=== PATIENT | female | born 1965 | race Caucasian/White ===

== ENCOUNTER 2016-11-26 12:03 | Emergency (ER) | payer OTHER ==
[2016-11-26 12:02] LABS: URINE SOURCE CLEAN CATCH
[~2016-11-26 12:03] MED LIST: CLARITIN10 M2 PO; MECLIZINE HCL25 M1; MEDI-MECLIZINE25 M1 PO; MOBIC15 MG PO; TYLENOL #3 PO; VITAMIN D50000 UNIT PO; ZANAFLEX4 M1 PO
[2016-11-26 12:04] LABS: URINE APPEARANCE SL CLOUDY; URINE BILIRUBIN NEG (NEG); URINE COLOR YELLOW; URINE GLUCOSE NEG (NORM); URINE KETONE NEG (NEG); URINE LEUKOCYTE ESTERASE NEG (NEG); URINE NITRATE NEG (NEG); URINE PH 8.5 (5-8); URINE PROTEIN NEG (NEG); URINE UROBILINOGEN 0.2 MG/DL (NORM)
[2016-11-26 12:09] LABS: MICRO INDICATED? NO; URINE BLOOD NEG (NEG)
[2016-11-26 12:32] LABS: BASOPHIL# 0.1 X10e3 (0-0.3); BASOPHIL% 1.3 % (0-2.5); EOSINOPHIL% 0.5 % (0.0-7.0); HEMATOCRIT 38.7 % (35.0-45.0); HEMOGLOBIN 12.7 gm/dL (12.0-16.0); LYMPHOCYTE# 1.4 X10e3 (1.0-3.5); LYMPHOCYTE% 14.9 % (17.0-45.0); MEAN CELL VOLUME 90.2 FL (83-96); MEAN CORPUSCULAR HEMOGLOBIN 29.8 PG (28-34); MEAN PLATELET VOLUME 9.4 FL (6.5-11.5); MONOCYTE# 0.4 X10e3 (0-1.0); MONOCYTE% 4.3 % (3.0-12.0); NEUTROPHIL# 7.4 X10e3 (1.5-7.1); PLATELET COUNT 352 X10e3 (140-420); RED BLOOD COUNT 4.28 X10e (3.90-5.30); RED CELL DISTRIBUTION WIDTH 13.8 % (11.0-15.5); WHITE BLOOD COUNT 9.4 X10e3 (4.0-10.5)
[2016-11-26 12:34] LABS: DIFF IND NO
[2016-11-26 12:57] LABS: ALBUMIN SERUM 4.4 g/dL (3.5-5.0); ALKALINE PHOSPHATASE 98 U/L (32-92); ALT (SGPT) 30 U/L (10-40); AST (SGOT) 25 U/L (10-42); BILIRUBIN,TOTAL 0.3 mg/dL (0.2-2.0); BLOOD UREA NITROGEN 11 mg/dL (9-23); BUN/CREATININE RATIO 18.33; CALCIUM SERUM 9.3 mg/dL (8.4-10.2); CARBON DIOXIDE 24 mmol/L (22-31); CHLORIDE 105 mmol/L (100-111); CREATININE SERUM 0.6 mg/dL (0.6-1.4); GLOM FILT RATE Estimated ABOVE60 mL/min (>60); GLUCOSE FASTING 126 mg/dL (70-110); LIPASE 35 U/L (22-51); POTASSIUM 3.5 mmol/L (3.5-5.1); PROTEIN TOTAL SERUM 7.4 g/dL (6.0-8.3); SODIUM 138 mmol/L (135-145)
== END 2016-11-26 14:02 | disposition home or self-care (01) ==
LOC: SED 12:03
PROVIDERS: Emergency Medicine
DX: K29.00 Acute gastritis without bleeding (principal); K80.50 Calculus of bile duct without cholangitis or cholecystitis without obstruction; F17.200 Nicotine dependence, unspecified, uncomplicated; Z98.890 Other specified postprocedural states; Z79.899 Other long term (current) drug therapy
CPT/HCPCS: 36415; 80053; 81003; 83690; 85025; 96361; 96374; 96375; 99284; J1885; J2405

== ENCOUNTER 2016-12-06 22:15 | Inpatient (IN) | payer OTHER ==
--- NOTE | ~2016-12-06 | OR ---
Unit #: [id number] #: [id number] Patient: ADALBERTO ESTRADA [id number] [address] [place], [place] [address] [id number] Erin MR#: [id number] NAME: ADALBERTO ESTRADA ROOM: [facility] Date of Procedure: 12/09/2016 Admission Date: 12/06/2016 Surgeon: Jeff Acharya M.D. : 1965 Attending Physician: Henrry Gregory M.D. Primary Care Physician: Dorian Bryant M.D. OPERATIVE REPORT PREOPERATIVE DIAGNOSIS Cholecystitis. POSTOPERATIVE DIAGNOSIS Cholecystitis. PROCEDURE PERFORMED Laparoscopic cholecystectomy. COMPENSATION AND BENEFITS ANALYST None. ANESTHESIA General endotracheal anesthesia. ESTIMATED BLOOD LOSS Minimal. IV FLUIDS 800 crystalloid. COMPLICATIONS None. INDICATIONS FOR PROCEDURE The patient is a 51-year-old with elevated bilirubin and findings consistent with acute cholecystitis. DESCRIPTION OF PROCEDURE The patient was taken to the operating theater and placed in supine position. General anesthesia was induced. The abdomen was prepped and draped. A 5-mm Optiview trocar was placed in the right upper quadrant without difficulty. The abdomen was insufflated to 15 mmHg with CO2. Under direct vision, I placed a subxiphoid 10 mm, right lateral 5 mm, and an umbilical 5 mm. General inspection of the abdomen as mentioned with acute cholecystitis. I grasped the gallbladder and retracted it up over the liver. I dissected the neck of the gallbladder and identified the cystic duct. Its junction with the gallbladder was confirmed. It was thus skeletonized, doubly hemoclipped, and divided. The cystic artery laid immediately posterior. This was skeletonized, doubly hemoclipped, and divided. The gallbladder was removed from the gallbladder bed with Bovie electrocautery and delivered via the subxiphoid port. Hemostasis Unit #: [id number] #: [id number] Patient: ADALBERTO ESTRADA was adequate. I removed the ports under direct vision with no evidence of abdominal hemorrhage. The fascia was closed with 0 Vicryl and skin with 4-0 Vicryl. The patient tolerated the procedure well and sent to recovery room in good condition. Dictated by... Opal Oneill/kam TD: 12/09/2016 11:06 JOB #: [id number] OPERATIVE REPORT X Jeff Acharya MD PROCEDURE OPERATIVE NOTE
--- NOTE | ~2016-12-06 | DS ---
Unit #: [id number] #: [id number] Patient: ADALBERTO ESTRADA [id number] [address] [place], [place] [address] [id number] I MR#: [id number] NAME: ADALBERTO ESTRADA ROOM: [facility] Age: 51 Sex: F Admission Date: 12/06/2016 : 1965 Discharge Date: 12/10/2016 Attending Physician: Henrry Gregory M.D. Primary Care Physician: Dorian Bryant M.D. DISCHARGE SUMMARY HISTORY AND HOSPITAL COURSE Ms. Estrada is a 51-year-old female, who presented to the emergency room with abdominal pain and was found to have gallstone and pancreatitis. She was admitted to the hospital and underwent a preoperative ERCP and stent placement to clear her common bile duct. The following day, she underwent laparoscopic cholecystectomy and today is doing very well. She is afebrile with stable vital signs. She is tolerating a regular diet and passing flatus. Her abdomen is benign to examination. Her liver chemistries are normalizing. Today, the patient will be discharged home in stable condition with instructions to undergo diet and activity as tolerated. She may shower and use a laxative as needed. She is to follow up with Dr. Acharya in 1 to 2 weeks for evaluation of her abdomen and wounds. She was told to schedule with Dr. Valdez to have her stent removed in 4 to 6 weeks. Prescription for Tylenol No.3 was left and the med reconciliation sheet was completed. The patient understood these instructions and to be discharged home in stable condition. Dictated by... Opal Husain/kam TD: 12/12/2016 01:20 JOB #: [id number] DISCHARGE SUMMARY X Henrry Gregory MD X DISCHARGE SUMMARY
--- NOTE | ~2016-12-06 | CO ---
Unit #: [id number] #: [id number] Patient: ADALBERTO ESTRADA [id number] [address] [address] [id number] I MR#: [id number] NAME: ADALBERTO ESTRADA ROOM: [facility] Age: 51 Sex: F Admission Date: 12/06/2016 : 1965 Attending Physician: Henrry Gregory M.D. Primary Care Physician: Dorian Bryant M.D. Consultation Date: 12/07/2016 CONSULTATION REPORT HISTORY OF PRESENT ILLNESS Ms. Estrada is a 51-year-old female who was in her usual state of health until the last 24 hours, when she developed epigastric pain followed by nausea and vomiting. She went to the [facility] emergency room because of the persistent vomiting. CT scan and labs were consistent with gallstone pancreatitis. The patient denies any alcohol or recreational drug use. She has never had any symptomatic cholelithiasis in the past. PAST MEDICAL HISTORY 1. Chronic obstructive pulmonary disease and is a three to four yaup-rre-dgq smoker. 2. Chronic back pain from a traumatic accident as a child. 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 3. She has Meniere disease. SOCIAL HISTORY She does not work. She is on disability. She has a boyfriend. She has had one child that has . She denies the use of alcohol or recreational drugs. She is a heavy smoker. FAMILY HISTORY She says there is a lot of medical illness in her family, but she is unclear as to specifics. ALLERGIES No known drug allergies. CURRENT MEDICATIONS Doses are documented on the medication reconciliation sheet, but they include 1. Pepcid. 2. Nicotine transdermal. 3. Spiriva. 4. Albuterol. 5. Tylenol 3. 6. Mobic. 7. Vitamin D. 8. Zanaflex. 9. Claritin. 10. Meclizine. REVIEW OF SYSTEMS No hematemesis, hematochezia or melena. No diarrhea or dysuria. Unit #: [id number] #: [id number] Patient: ADALBERTO ESTRADA PHYSICAL EXAMINATION GENERAL: She is awake, alert and oriented. She appears comfortable. VITALS: Temperature 99.2, pulse 78, respiratory rate 17, blood pressure 130/76. HEENT: Unremarkable. LUNGS: Clear. HEART: Regular rhythm. ABDOMEN: Slightly distended, but is soft. She guards throughout, particularly in the epigastrium. She has a well-healed upper midline scar. EXTREMITIES: No edema. NEUROLOGIC: Grossly intact. SKIN: No skin rashes or lesions. DIAGNOSTIC STUDIES IMAGING: CT scan of the abdomen and pelvis showed diffuse pancreatic edema and enlargement consistent with pancreatitis. She had cholelithiasis with gallbladder wall thickening and diffuse enlargement of the extrahepatic and intrahepatic biliary ductal system. Ultrasound of the gallbladder confirmed cholelithiasis and the ductal abnormalities. LABORATORY: CMP today shows normal electrolytes, BUN and creatinine. Her initial total bilirubin was 3.3 and on followup it is 1.5. Amylase and lipase today are 652 and 1537. Her lipase in the emergency room last night was 10,520. Alcohol was less than 5. INR 1.5, white blood cell count 15,000 with 82% neutrophils, hemoglobin 13.3, platelets 318,000. Tox screen was negative. Urinalysis was negative for infection. ASSESSMENT/PLAN 1. 51-year-old female with gallstone pancreatitis. The patient will be admitted, hydrated and started on antibiotics because of the possibility of acute cholecystitis associated with the pancreatitis. We will keep her GI tract at rest and allow the pancreatitis to resolve. In the interim we will ask gastroenterology to see the patient for preoperative ERCP to clear her common bile duct. After that we discussed that she will need laparoscopic cholecystectomy to remove her gallbladder and prevent recurrence. The patient understands and agrees to proceed. 2. Tobacco abuse and chronic obstructive pulmonary disease. We will continue her home medications and give her a nicotine patch. However, should she have any pulmonary issues, pulmonary medicine will be consulted. Dictated by... Opal Husain TD: 12/07/2016 06:40 JOB #: [id number] Unit #: [id number] #: [id number] Patient: ADALBERTO ESTRADA CONSULTATION REPORT X Henrry Gregory MD X CONSULTATION REPORT
--- NOTE | ~2016-12-06 | CR84 ---
[facility] A Service of [facility] & [facility] / [facility] RADIOLOGY TEXT RESULTS PATIENT: ADALBERTO ESTRADA LOCATION: [facility] 473-01 : [birth year] UNIT #: [id number] AGE: [address]: Henrry Gregory MD SEX: F ORDER DR: [id number] [facility] [address] [place], [place] [address] [id number] I MR#: [id number] Acc #: [id number] NAME: ADALBERTO ESTRADA : 1965 SEX: F STUDY DATE/TIME: 12/08/2016 8:45 UNIT: [facility] ROOM: [facility] STUDY DESCRIPTION: CR ERCP Biliary and Pancr SI Attending Physician: Henrry Gregory M.D. Ordering Physician: Sabino Valdez M.D. Primary Care Physician: Dorian Bryant M.D. MEDICAL IMAGING REPORT This report is preliminary unless electronic signature is present EXAM ERCP interpretation only INDICATIONS 51-year-old female with common bile duct stones. FINDINGS The fluoro time was 2.1 minutes. 5 images were submitted. The study demonstrates injection of the common bile duct with balloon sweeping and placement of a stent in the common bile duct. Please refer to ERCP report for complete details. Dictated by... Bert Dowling M.D. THIS IS AN ELECTRONICALLY VERIFIED REPORT Bert Dowling M.D. at 12/09/2016 7:41 AM ARS/[place]ha TD: 12/08/2016 16:13 JOB #: [id number] MEDICAL IMAGING REPORT COPY
--- NOTE | ~2016-12-06 | CO ---
Unit #: [id number] #: [id number] Patient: ADALBERTO ESTRADA [id number] [address] [place], [place] [address] [id number] I MR#: [id number] NAME: ADALBERTO ESTRADA ROOM: 473 Age: 51 Sex: F Admission Date: 12/06/2016 : 1965 Attending Physician: Henrry Gregory M.D. Primary Care Physician: Dorian Bryant M.D. Consultation Date: 12/07/2016 CONSULTATION REPORT REASON FOR CONSULTATION Biliary pancreatitis. HISTORY OF PRESENT ILLNESS Ms. Estrada is a 51-year-old white female, who is a heavy smoker smokes about three packs of cigarettes a day. The patient has presented with history of acute biliary pancreatitis. She had severe upper abdominal pain along with nausea and vomiting. The pain was continuous felt diffusely in the upper abdomen. The patient has been having smaller pains in the upper abdomen for the past few weeks that would resolve spontaneously. She also has longstanding history of retrosternal ascending heartburn, postprandial dyspepsia, and gastroesophageal reflux. PAST MEDICAL HISTORY Significant for history of Meniere disease, chronic obstructive lung disease, and chronic back pain. PAST SURGICAL HISTORY Includes splenectomy and appendectomy, traumatic accident following the trauma. MEDICATIONS At home included Pepcid, Spiriva, albuterol, Tylenol No. 3, Mobic, vitamin D, Zanaflex, Claritin, meclizine. ALLERGIES She has no known drug allergies. FAMILY HISTORY No family history of colon, pancreatic cancer, or liver disease. SOCIAL HISTORY The patient is disabled, lives with boyfriend. Does not drink alcohol, but smokes three pack of cigarette a day. REVIEW OF SYSTEMS Detailed review of organ systems does not reveal any recent weight loss. No history of fever, chills, or rigors. No history of headache, seizures, or syncope. No history of cough, expectoration, or hemoptysis. No history of dysuria, hematuria, or pyuria. No history of focal seizures or extremity weakness. Main symptoms seems to be lower sternal and upper abdominal pain. PHYSICAL EXAMINATION Unit #: [id number] #: [id number] Patient: ADALBERTO ESTRADA GENERAL: She is alert and oriented, comfortable, and lying in supine in bed. VITAL SIGNS: Stable with a temperature of 98, pulse 78 per minute and regular, respiratory rate is 17, blood pressure is 111/71. She weighs 116 pounds. HEENT: She has no pallor, icterus, lymphadenopathy, or peripheral edema. CARDIOVASCULAR: Normal heart sounds. No murmurs on auscultation. LUNGS: Reveals normal breath sounds. Good air entry. ABDOMEN: Soft, there being no area of localized rigidity, rebound, guarding, or tenderness. Liver and spleen are not palpable. Bowel sounds normal. DIAGNOSTIC STUDIES LABORATORY RESULTS: Shows an INR of 1.5. A CBC with a white count of 17,000 with left shift. Serum chemistry shows normal BUN and creatinine and electrolytes. AST, ALT, and alkaline phosphatase is 186, 334, and 299 respectively. Peak amylase and lipase are 652 and 10,000, which shows a declining trend. IMAGING STUDIES: I do not have access to the patient's CAT scan, but it is reported as being consistent with gallstone pancreatitis by Dr. Gregory. I will try to see if there is any biliary ductal dilation on the CT. CLINICAL IMPRESSION 1. The patient with acute biliary pancreatitis. The management and plan will include clearance of the common bile duct followed by laparoscopic cholecystectomy. An endoscopic retrograde cholangiopancreatography is being scheduled for tomorrow. The pros and cons of procedure, potential risks, and complications were discussed with the patient including possibility of perforation, bleeding, and complication related to sedation, as well as pancreatitis. 2. Mild coagulopathy. This might be due to some circulating anticoagulant. We will give the patient 1 unit of FFP as she is likely to need sphincterotomy if she would have common bile duct stones. 3. Heavy tobacco abuse. 4. Chronic back pain. 5. Chronic obstructive pulmonary disease. Thank you very much for asking me to see this pleasant patient. I appreciate the consult. Dictated by... Opal Dc TD: 12/07/2016 10:07 JOB #: [id number] Unit #: [id number] #: [id number] Patient: ADALBERTO ESTRADA CONSULTATION REPORT X Sabino Valdez MD X CONSULTATION REPORT
--- NOTE | ~2016-12-06 | OR ---
Unit #: [id number] #: [id number] Patient: ADALBERTO ESTRADA [id number] [address] [place], [place] [address] [id number] I MR#: [id number] NAME: ADALBERTO ESTRADA ROOM: [facility] Date of Procedure: 12/08/2016 Admission Date: 12/06/2016 Surgeon: Sabino Valdez M.D. : 1965 Attending Physician: Henrry Gregory M.D. Primary Care Physician: Dorian Bryant M.D. OPERATIVE REPORT PRIMARY CARE PHYSICIAN Dorian Bryant M.D. PREOPERATIVE DIAGNOSES The patient presented with biliary pancreatitis. The purpose of the endoscopic retrograde cholangiopancreatography is to clear the common bile duct. PROCEDURES PERFORMED 1. Endoscopic retrograde cholangiopancreatography and sphincterotomy. 2. Endoscopic retrograde cholangiopancreatography and biliary stent placement. POSTOPERATIVE DIAGNOSES The patient has extremely tight papillary stenosis. The access was gained after a needle knife sphincterotomy and cholangiogram showed the common bile duct to be dilated to about 12 mm; however, no stones or debris were found after the duct was swept with a 12 mm balloon multiple times. There were however multiple stones in the cystic duct and gallbladder. A 10-Citizen Of [place] 5 cm biliary stent was deployed with excellent drainage established at the end of the procedure. RECOMMENDATIONS The patient will undergo laparoscopic cholecystectomy tomorrow. We will obtain CBC, CMP, amylase, and lipase in the morning. She will be n.p.o. after midnight. SEDATION USED General anesthesia. The procedure was done in the main OR. DESCRIPTION OF PROCEDURE Following detailed explanation of the potential risks and complications of an ERCP namely perforation, bleeding, complication related to sedation, and pancreatitis, the patient was brought to the main OR and laid in the left semiprone position. A preliminary upper GI endoscopy was performed, which was normal. A lateral-viewing duodenoscope was then advanced through the oral cavity into the esophagus and then into the stomach. Pylorus was intubated in the usual fashion. The scope was advanced in deep descending duodenum. Upon shortening the scope, major papilla and ampullary area were visualized en face; however, the lie of the scope was contrary to what would be ideal and therefore the long position was used to access the ampulla. After spending about half an hour trying to get Unit #: [id number] #: [id number] Patient: ADALBERTO ESTRADA into the ampullary area without any success, even though the papula was nicely engaged, a needle knife sphincterotomy was performed and access to the bile duct was gained subsequently. The common bile duct was found to be dilated to about 12 mm. The cystic duct was patent and both the gallbladder and cystic duct had multiple stones. The common bile duct was then swept with a 9- to -12 mm retrieval balloon at 12 mm pressures multiple times. No debris or stones were delivered. A 10-Citizen [place] 5 cm biliary stent was then deployed. Excellent biliary drainage was established and photodocumentation was obtained. The scope and the accessories were then withdrawn. The patient returned to the recovery area. She tolerated the procedure without any postprocedure complications. Dictated by... Opal Dc/kam TD: 12/08/2016 11:19 JOB #: [id number] OPERATIVE REPORT X Sabino Valdez MD PROCEDURE OPERATIVE NOTE
[~2016-12-06 22:15] MED LIST changes: -ALBUTEROL20 ml; -APAP325 M2 PO; -FAMOTIDINE20 M1 PO; -NICOTINE TRANSD21 MG TOP; -SPIRIVA RESPIMAT4 G1 INH
[2016-12-06] MEDS ORDERED: FAMOTIDINE20 M1 PO (23:51)
[2016-12-06] MEDS ORDERED: SPIRIVA RESPIMAT4 G1 INH (23:53)
[2016-12-06] MEDS ORDERED: NICOTINE TRANSD21 MG TOP (23:53)
[2016-12-06] MEDS ORDERED: ALBUTEROL20 ml (23:59)
[2016-12-07] MEDS ORDERED: TYLENOL #3 PO (00:13)
[2016-12-07 04:21] LABS: BASOPHIL# 0.1 X10e3 (0-0.3); BASOPHIL% 0.6 % (0-2.5); EOSINOPHIL% 0.1 % (0.0-7.0); HEMATOCRIT 41.4 % (35.0-45.0); HEMOGLOBIN 13.3 gm/dL (12.0-16.0); LYMPHOCYTE# 1.9 X10e3 (1.0-3.5); LYMPHOCYTE% 12.5 % (17.0-45.0); MEAN CELL VOLUME 92.7 FL (83-96); MEAN CORPUSCULAR HEMOGLOBIN 29.8 PG (28-34); MEAN CORPUSCULAR HGB CONC 32.2 g/dL (30-36); MEAN PLATELET VOLUME 10.4 FL (6.5-11.5); MONOCYTE# 0.7 X10e3 (0-1.0); MONOCYTE% 4.9 % (3.0-12.0); NEUTROPHIL# 12.3 X10e3 (1.5-7.1); NEUTROPHIL% 81.9 % (40-75); RED BLOOD COUNT 4.46 X10e (3.90-5.30); RED CELL DISTRIBUTION WIDTH 14.2 % (11.0-15.5)
[2016-12-07 04:24] LABS: INR 1.5; PROTHROMBIN TIME (PATIENT) 16.1 SECONDS (9.6-11.5)
[2016-12-07 04:45] LABS: DIFF IND NO; PLATELET COUNT 318 X10e3 (140-420)
[2016-12-07 04:57] LABS: ALBUMIN SERUM 3.6 g/dL (3.5-5.0); ALKALINE PHOSPHATASE 299 U/L (32-92); ALT (SGPT) 334 U/L (10-40); AMYLASE 652 U/L (0-46); AST (SGOT) 186 U/L (10-42); BILIRUBIN,TOTAL 1.5 mg/dL (0.2-2.0); BLOOD UREA NITROGEN 10 mg/dL (9-23); BUN/CREATININE RATIO 14.28; CARBON DIOXIDE 24 mmol/L (22-31); CHLORIDE 112 mmol/L (100-111); CREATININE SERUM 0.7 mg/dL (0.6-1.4); GLOM FILT RATE Estimated ABOVE60 mL/min (>60); GLUCOSE FASTING 128 mg/dL (70-110); LIPASE 1537 U/L (22-51); MAGNESIUM 1.8 mg/dL (1.6-3.0); PHOSPHOROUS 5.2 mg/dL (2.5-4.6); PROTEIN TOTAL SERUM 6.9 g/dL (6.0-8.3); SODIUM 139 mmol/L (135-145)
[2016-12-07 04:58] LABS: CALCIUM SERUM 8.7 mg/dL (8.4-10.2)
[2016-12-08 03:49] LABS: HEMATOCRIT 33.1 % (35.0-45.0); MEAN CELL VOLUME 91.8 FL (83-96); MEAN CORPUSCULAR HGB CONC 32.7 g/dL (30-36); MEAN PLATELET VOLUME 9.5 FL (6.5-11.5); RED BLOOD COUNT 3.6 X10e (3.90-5.30); RED CELL DISTRIBUTION WIDTH 13.9 % (11.0-15.5); WHITE BLOOD COUNT 14.3 X10e3 (4.0-10.5)
[2016-12-08 03:50] LABS: HEMOGLOBIN 10.8 gm/dL (12.0-16.0)
[2016-12-08 04:36] LABS: ALBUMIN SERUM 3.1 g/dL (3.5-5.0); ALKALINE PHOSPHATASE 206 U/L (32-92); ALT (SGPT) 182 U/L (10-40); AMYLASE 266 U/L (0-46); AST (SGOT) 62 U/L (10-42); BILIRUBIN,TOTAL 0.8 mg/dL (0.2-2.0); BLOOD UREA NITROGEN 5 mg/dL (9-23); BUN/CREATININE RATIO 8.33; CALCIUM SERUM 8.5 mg/dL (8.4-10.2); CARBON DIOXIDE 27 mmol/L (22-31); CHLORIDE 105 mmol/L (100-111); CREATININE SERUM 0.6 mg/dL (0.6-1.4); GLOM FILT RATE Estimated ABOVE60 mL/min (>60); GLUCOSE FASTING 118 mg/dL (70-110); LIPASE 322 U/L (22-51); POTASSIUM 3.4 mmol/L (3.5-5.1); PROTEIN TOTAL SERUM 5.8 g/dL (6.0-8.3); SODIUM 138 mmol/L (135-145)
[2016-12-09 03:53] LABS: BASOPHIL# 0.1 X10e3 (0-0.3); BASOPHIL% 0.5 % (0-2.5); EOSINOPHIL# 0.5 X10e3 (0-0.7); EOSINOPHIL% 3.8 % (0.0-7.0); HEMATOCRIT 30.8 % (35.0-45.0); HEMOGLOBIN 10.2 gm/dL (12.0-16.0); LYMPHOCYTE# 1.6 X10e3 (1.0-3.5); MEAN CELL VOLUME 91.5 FL (83-96); MEAN CORPUSCULAR HEMOGLOBIN 30.3 PG (28-34); MEAN CORPUSCULAR HGB CONC 33.1 g/dL (30-36); MEAN PLATELET VOLUME 9.7 FL (6.5-11.5); MONOCYTE# 0.7 X10e3 (0-1.0); MONOCYTE% 5.4 % (3.0-12.0); NEUTROPHIL# 10.4 X10e3 (1.5-7.1); NEUTROPHIL% 78.3 % (40-75); PLATELET COUNT 275 X10e3 (140-420); RED BLOOD COUNT 3.37 X10e (3.90-5.30); RED CELL DISTRIBUTION WIDTH 14.1 % (11.0-15.5); WHITE BLOOD COUNT 13.3 X10e3 (4.0-10.5)
[2016-12-09 03:54] LABS: DIFF IND NO
[2016-12-09 04:19] LABS: ALBUMIN SERUM 2.7 g/dL (3.5-5.0); ALKALINE PHOSPHATASE 162 U/L (32-92); ALT (SGPT) 122 U/L (10-40); AMYLASE 119 U/L (0-46); AST (SGOT) 37 U/L (10-42); BILIRUBIN,TOTAL 0.6 mg/dL (0.2-2.0); BLOOD UREA NITROGEN <5 mg/dL (9-23); BUN/CREATININE RATIO 8.33; CALCIUM SERUM 8.2 mg/dL (8.4-10.2); CARBON DIOXIDE 27 mmol/L (22-31); CHLORIDE 107 mmol/L (100-111); CREATININE SERUM 0.6 mg/dL (0.6-1.4); GLOM FILT RATE Estimated ABOVE60 mL/min (>60); GLUCOSE FASTING 134 mg/dL (70-110); LIPASE 147 U/L (22-51); MAGNESIUM 1.6 mg/dL (1.6-3.0); PHOSPHOROUS 1.9 mg/dL (2.5-4.6); POTASSIUM 3.1 mmol/L (3.5-5.1); PROTEIN TOTAL SERUM 5.6 g/dL (6.0-8.3); SODIUM 138 mmol/L (135-145)
[2016-12-10 03:40] LABS: BASOPHIL# 0.1 X10e3 (0-0.3); BASOPHIL% 0.8 % (0-2.5); EOSINOPHIL# 0.8 X10e3 (0-0.7); EOSINOPHIL% 6.7 % (0.0-7.0); HEMATOCRIT 32.9 % (35.0-45.0); HEMOGLOBIN 10.6 gm/dL (12.0-16.0); LYMPHOCYTE# 2.9 X10e3 (1.0-3.5); LYMPHOCYTE% 24.1 % (17.0-45.0); MEAN CELL VOLUME 92.9 FL (83-96); MEAN CORPUSCULAR HGB CONC 32.3 g/dL (30-36); MEAN PLATELET VOLUME 9.7 FL (6.5-11.5); MONOCYTE% 8.8 % (3.0-12.0); NEUTROPHIL# 7.1 X10e3 (1.5-7.1); NEUTROPHIL% 59.6 % (40-75); PLATELET COUNT 309 X10e3 (140-420); RED BLOOD COUNT 3.54 X10e (3.90-5.30); RED CELL DISTRIBUTION WIDTH 13.8 % (11.0-15.5); WHITE BLOOD COUNT 11.8 X10e3 (4.0-10.5)
[2016-12-10 03:42] LABS: DIFF IND NO
[2016-12-10 04:09] LABS: ALBUMIN SERUM 3.1 g/dL (3.5-5.0); ALKALINE PHOSPHATASE 161 U/L (32-92); ALT (SGPT) 105 U/L (10-40); AST (SGOT) 29 U/L (10-42); BILIRUBIN,TOTAL 0.6 mg/dL (0.2-2.0); BLOOD UREA NITROGEN 7 mg/dL (9-23); BUN/CREATININE RATIO 11.66; CALCIUM SERUM 8.5 mg/dL (8.4-10.2); CARBON DIOXIDE 27 mmol/L (22-31); CHLORIDE 101 mmol/L (100-111); CREATININE SERUM 0.6 mg/dL (0.6-1.4); GLOM FILT RATE Estimated ABOVE60 mL/min (>60); GLUCOSE FASTING 95 mg/dL (70-110); POTASSIUM 3.3 mmol/L (3.5-5.1); PROTEIN TOTAL SERUM 5.6 g/dL (6.0-8.3); SODIUM 136 mmol/L (135-145)
[2016-12-10] MEDS ORDERED: APAP325 M2 PO (10:19)
[2016-12-10] MEDS ORDERED: TYLENOL #3 PO (10:21)
== END 2016-12-10 11:57 | disposition home or self-care (01) | DRG 418 ==
LOC: C4C 22:15
PROVIDERS: Internal Medicine Gastroenterology; Specialist; Surgery
PROC: 30233L1 Transfusion of Nonautologous Fresh Plasma into Peripheral Vein, Percutaneous Approach (ICD-10-PCS; 2016-12-07)
PROC: 30233K1 Transfusion of Nonautologous Frozen Plasma into Peripheral Vein, Percutaneous Approach (ICD-10-PCS; 2016-12-07)
PROC: 0F798DZ Dilation of Common Bile Duct with Intraluminal Device, Via Natural or Artificial Opening Endoscopic (ICD-10-PCS; 2016-12-08 08:30)
PROC: 0DJ08ZZ Inspection of Upper Intestinal Tract, Via Natural or Artificial Opening Endoscopic (ICD-10-PCS; 2016-12-08 08:30)
PROC: 0FT44ZZ Resection of Gallbladder, Percutaneous Endoscopic Approach (ICD-10-PCS; principal; 2016-12-09 09:00)
DX: K85.10 Biliary acute pancreatitis without necrosis or infection (principal); K80.12 Calculus of gallbladder with acute and chronic cholecystitis without obstruction; J44.9 Chronic obstructive pulmonary disease, unspecified; H81.09 Meniere's disease, unspecified ear; F17.210 Nicotine dependence, cigarettes, uncomplicated; M54.9 Dorsalgia, unspecified; G89.29 Other chronic pain
CPT/HCPCS: 74330; 80053; 82150; 83690; 83735; 84100; 85025; 85027; 85610; 85730; 86850; 86900; 86901; 88304; 94640; 94760; C9113; J0131; J0330; J1610; J1644; J1885; J2175; J2250; J2270; J2405; J2543; J2805; J3010; P9059

== ENCOUNTER → 2016-12-06 | Emergency (ER) | payer OTHER ==
[~2016-12-06] MED LIST changes: +ALBUTEROL20 ml; +APAP325 M2 PO; +FAMOTIDINE20 M1 PO; +NICOTINE TRANSD21 MG TOP; +SPIRIVA RESPIMAT4 G1 INH
--- NOTE | ~2016-12-06 | CT2 ---
[facility] A Service of [facility] & [facility] RADIOLOGY TEXT RESULTS PATIENT: ADALBERTO ESTRADA LOCATION: SED : 63 UNIT #: [id number] AGE: [address]: Maikol Sheffield MD SEX: F ORDER DR: [id number] [address] [address] [id number] E MR#: [id number] Acc #: [id number] NAME: ADALBERTO ESTRDAA : 1965 SEX: F STUDY DATE/TIME: 12/06/2016 17:21 UNIT: SED ROOM: STUDY DESCRIPTION: CT Abd and Pelv W Cont Attending Physician: Maikol Sheffield M.D. Ordering Physician: To Lawson M.D. Primary Care Physician: Dorian Bryant M.D. MEDICAL IMAGING REPORT This report is preliminary unless electronic signature is present. EXAM CT scan of the abdomen and pelvis with contrast 12/06/2016 HISTORY Nausea and vomiting for 4 hours with right-side abdominal pain radiating into the middle of the abdomen. Dry heaves, gastritis and acid reflux. TECHNIQUE Spiral CT was performed through the abdomen and pelvis following intravenous contrast administration only as per clinician request. This CT exam was performed with one or more of the following radiation dose reduction techniques: automatic exposure control, adjustment of mA and/or kV according to patient size, and iterative reconstruction. FINDINGS Abdomen: There is no prior CT scan of the abdomen and pelvis for comparison. The liver is normal. The spleen is surgically absent. There are multiple gallstones and the gallbladder wall demonstrates mild diffuse thickening. I cannot exclude cholecystitis. Consider correlation with gallbladder ultrasound. There is intra and extrahepatic biliary ductal dilatation with the common duct reaching a maximum diameter of 1.1 cm. No obstructing mass or calculus is seen. Again correlation with gallbladder ultrasound is suggested. There is diffuse enlargement of the pancreas and there is inflammatory stranding and fluid in the peripancreatic fat surrounding the pancreatic body and tail with extension into the left anterior pararenal space characteristic of acute pancreatitis. Correlation with clinical and laboratory findings is recommended. The adrenal glands and kidneys are normal. Pelvis: The gut, mesenteric and kenneth structures are normal. There is no free fluid in the abdomen or pelvis. Images of the lung bases demonstrate a moderate-sized hiatal hernia. [facility] A Service of [facility] RADIOLOGY TEXT RESULTS PATIENT: ADALBERTO ESTRADA LOCATION: SED : 63 UNIT #: [id number] AGE: [address]: Maikol Sheffield MD SEX: F ORDER DR: IMPRESSION 1. Diffuse enlargement of the pancreas. There is fluid and stranding in the fat surrounding the pancreatic body and tail with extension into the left anterior pararenal space characteristic of acute pancreatitis. Correlation with clinical and laboratory findings is recommended. 2. There is cholelithiasis as well as diffuse thickening of the gallbladder wall. I cannot exclude cholecystitis on the basis of this examination. Correlation with gallbladder ultrasound is recommended. 3. Intra and extrahepatic biliary ductal dilatation with the common duct reaching a maximum diameter of 1.1 cm. No obstructing mass or calculus is seen. Again correlation with gallbladder ultrasound suggested. 4. Surgical absence of the spleen. 5. A moderate-sized hiatal hernia. 1. Dictated by... Fidel Alfonso M.D. THIS IS AN ELECTRONICALLY VERIFIED REPORT Fidel Alfonso M.D. at 12/07/2016 3:25 PM Dora TD: 12/07/2016 13:05 JOB #: [id number] MEDICAL IMAGING REPORT
--- NOTE | ~2016-12-06 | US67 ---
[facility] A Service of [facility] & [facility] RADIOLOGY TEXT RESULTS PATIENT: ADALBERTO ESTRADA LOCATION: SED : 63 UNIT #: [id number] AGE: [address]: Maikol Sheffield MD SEX: F ORDER DR: [id number] [address] [address] [id number] E MR#: [id number] Acc #: [id number] NAME: ADALBERTO ESTRADA : 1965 SEX: F STUDY DATE/TIME: 12/06/2016 18:21 UNIT: SED ROOM: STUDY DESCRIPTION: Gallbladder Attending Physician: Maikol Sheffield M.D. Ordering Physician: To Lawson M.D. Primary Care Physician: Dorian Bryant M.D. MEDICAL IMAGING REPORT This report is preliminary unless electronic signature is present. EXAM Gallbladder ultrasound, 12/06/2016. HISTORY Right upper quadrant abdominal pain for 2 weeks with nausea and vomiting. CT scan of the abdomen and pelvis performed earlier today demonstrated questionable thickening of the gallbladder wall as well as intra and extrahepatic biliary ductal dilatation and cholelithiasis. FINDINGS The liver is homogeneous in echotexture and demonstrates no cystic or solid mass lesions. The intra and extrahepatic bile ducts are not dilated. The gallbladder contains multiple shadowing gallstones, the largest of which measures 2.2 cm in diameter. Additionally, there is mild diffuse thickening of the gallbladder wall measuring 4 mm. I cannot exclude cholecystitis on the basis of this examination. Clinical correlation is recommended. Consider correlation with HIDA scan. The common duct measures 6 mm. The pancreas is diffusely enlarged and there is fluid in the peripancreatic space. CT scan of the abdomen and pelvis earlier today suggested acute pancreatitis. Correlation with clinical and laboratory findings is recommended. The right kidney is normal in appearance. IMPRESSION 1. Cholelithiasis with diffuse thickening of the gallbladder wall. I cannot exclude cholecystitis. Consider correlation with HIDA scan. 2. Mild diffuse enlargement of the pancreas and there is fluid in the peripancreatic space. Preceding CT scan of the abdomen and pelvis suggested acute pancreatitis. Correlation with clinical and laboratory findings is recommended. Dictated by... [facility] A Service of [facility] & [facility] RADIOLOGY TEXT RESULTS PATIENT: ADALBERTO ESTRADA LOCATION: SED : 63 UNIT #: [id number] AGE: [address]: Maikol Sheffield MD SEX: F ORDER DR: Fidel Alfonso M.D. THIS IS AN ELECTRONICALLY VERIFIED REPORT Fidel Alfonso M.D. at 12/07/2016 3:26 PM KRT/greta TD: 12/07/2016 14:24 JOB #: [id number] MEDICAL IMAGING REPORT
[2016-12-06 17:15] LABS: POC - CREATININE 0.89 mg/dL (0.44-1.03); POC - GFR >60.0 mL/min (>60)
[2016-12-06 17:21] LABS: BASOPHIL# 0.2 X10e3 (0-0.3); BASOPHIL% 0.9 % (0-2.5); EOSINOPHIL# 0.1 X10e3 (0-0.7); EOSINOPHIL% 0.6 % (0.0-7.0); HEMOGLOBIN 15.1 gm/dL (12.0-16.0); LYMPHOCYTE# 1.6 X10e3 (1.0-3.5); LYMPHOCYTE% 8.8 % (17.0-45.0); MEAN CELL VOLUME 90.9 FL (83-96); MEAN CORPUSCULAR HEMOGLOBIN 29.9 PG (28-34); MEAN CORPUSCULAR HGB CONC 32.8 g/dL (30-36); MEAN PLATELET VOLUME 10.4 FL (6.5-11.5); MONOCYTE# 0.7 X10e3 (0-1.0); MONOCYTE% 4.1 % (3.0-12.0); NEUTROPHIL# 15.2 X10e3 (1.5-7.1); NEUTROPHIL% 85.6 % (40-75); PLATELET COUNT 399 X10e3 (140-420); RED BLOOD COUNT 5.06 X10e (3.90-5.30); WHITE BLOOD COUNT 17.7 X10e3 (4.0-10.5)
[2016-12-06 17:24] LABS: DIFF IND NO
[2016-12-06 18:12] LABS: ALKALINE PHOSPHATASE 384 U/L (32-92); ALT (SGPT) 485 U/L (10-40); AST (SGOT) 317 U/L (10-42); BILIRUBIN, DIRECT 1.9 mg/dL (0.0-0.2); BILIRUBIN,INDIRECT 1.4 mg/dL (0.0-0.9); BILIRUBIN,TOTAL 3.3 mg/dL (0.2-2.0); BLOOD UREA NITROGEN 12 mg/dL (9-23); CALCIUM SERUM 10.7 mg/dL (8.4-10.2); CARBON DIOXIDE 26 mmol/L (22-31); CHLORIDE 100 mmol/L (100-111); CREATININE SERUM 0.6 mg/dL (0.6-1.4); GLOM FILT RATE Estimated ABOVE60 mL/min (>60); GLUCOSE FASTING 161 mg/dL (70-110); POTASSIUM 4.1 mmol/L (3.5-5.1); PROTEIN TOTAL SERUM 8.4 g/dL (6.0-8.3); SODIUM 138 mmol/L (135-145)
[2016-12-06 19:27] LABS: LIPASE 10520 U/L (22-51)
[2016-12-06 19:39] LABS: URINE SOURCE CLEAN CATCH
[2016-12-06 19:42] LABS: URINE APPEARANCE CLEAR; URINE BLOOD 1+ (NEG); URINE COLOR DK YELLOW; URINE GLUCOSE NEG (NORM); URINE KETONE NEG (NEG); URINE LEUKOCYTE ESTERASE NEG (NEG); URINE NITRATE NEG (NEG); URINE PH 6.5 (5-8); URINE PROTEIN NEG (NEG); URINE SPECIFIC GRAVITY <=1.005 (1.003-1.035)
[2016-12-06 19:45] LABS: MICRO INDICATED? YES; URINE BILIRUBIN POS (NEG)
[2016-12-06 19:47] LABS: CULTURE INDICATED? NO; URINE BACTERIA NEG (NEG)
[2016-12-06 19:48] LABS: URINE SQUAMOUS EPITHELIAL CELL OCCAS /[HPF]; URINE TRANSITIONAL EPI CELLS FEW /[HPF]
[2016-12-06 19:52] LABS: AMPHETAMINE NEG (NEG); BARBITURATES NEG (NEG); BENZODIAZEPINES NEG (NEG); COCAINE NEG (NEG); MARIJUANA NEG (NEG); OPIATES NEG (NEG); TRICYCLIC ANTIDEPRESSANTS NEG (NEG); U METHADONE NEG (NEG)
== END | disposition home or self-care (01) ==
LOC: SED 17:12
PROVIDERS: Emergency Medicine
DX: K80.70 Calculus of gallbladder and bile duct without cholecystitis without obstruction (principal); K85.10 Biliary acute pancreatitis without necrosis or infection; F17.210 Nicotine dependence, cigarettes, uncomplicated; Z79.899 Other long term (current) drug therapy
CPT/HCPCS: 36415; 74177; 76705; 80048; 80076; 80307; 81003; 82565; 83690; 85025; 96374; 96375; 99285; G0480; J2270; J2405; J2543; Q9967

== ENCOUNTER → 2017-02-14 | Day surgery (SDC) | payer OTHER ==
[~2017-02-14] MED LIST changes: +ALBUTEROL20 ml; +APAP325 M2 PO; +FAMOTIDINE20 M1 PO; +NICOTINE TRANSD21 MG TOP; +SPIRIVA RESPIMAT4 G1 INH
--- NOTE | ~2017-02-14 | CR7 ---
[facility] A Service of [facility] RADIOLOGY TEXT RESULTS PATIENT: ADALBERTO ESTRADA LOCATION: [facility] : 63 UNIT #: [id number] AGE: [address]: Sabino Valdez MD SEX: F ORDER DR: [id number] [facility] [address] [place], [place] [address] [id number] O MR#: [id number] Acc #: [id number] NAME: ADALBERTO ESTRADA : 1965 SEX: F STUDY DATE/TIME: 02/14/2017 16:07 UNIT: [facility] ROOM: STUDY DESCRIPTION: CR Abdomen Single AP View Attending Physician: Sabino Valdez M.D. Ordering Physician: Sabino Valdez M.D. Primary Care Physician: Dorian Bryant M.D. MEDICAL IMAGING REPORT This report is preliminary unless electronic signature is present REVISED REPORT SEE ADDENDUM EXAM Supine radiographs of the abdomen. DATE OF EXAM 02/14/2017 HISTORY Questionable stent location, abdomen pain, acute pancreatitis. Questionable biliary stent location today. FINDINGS 2 supine radiographs of the abdomen are presented. Efforts underway contact Dr. Valdez for discussion of findings at time of this dictation. Comparison made to images from ERCP earlier on the same date and ERCP 12/08/2016. The lung bases are clear. There is retained contrast material in mildly distended intra and extrahepatic bile ducts. I do not see significant contrast in the bowel. Findings raise the possibility of some degree of morphologic or functional stenosis at the ampulla of Vater. Please correlate with ERCP findings. No biliary ductal stent is visualized. I see no stent like structure extending into the duodenum. The biliary ductal stent visualized on ERCP in November 2016 not evident on current study and not seen on the available images from today's ERCP. The bowel gas pattern shows mild air distension of stomach, small bowel and colon consistent with recent endoscopy. There is no free air. No acute-appearing bony abnormality. Dictated by... [facility] A Service of [facility] RADIOLOGY TEXT RESULTS PATIENT: ADALBERTO ESTRADA LOCATION: [facility] : 63 UNIT #: [id number] AGE: [address]: Sabino Valdez MD SEX: F ORDER DR: Jeff Thurston M.D. THIS IS AN ELECTRONICALLY VERIFIED REPORT Jeff Thurston M.D. at 02/18/2017 10:59 PM KARIE/yoshi TD: 02/14/2017 21:50 JOB #: [id number] ADDENDUM Supine radiograph of the abdomen 02/14/2017 HISTORY Questionable stent location. Findings discussed directly with Dr. Valdez at 17:24 hours on 02/14/2017. Dictated by... Jeff Thurston M.D. THIS IS AN ELECTRONICALLY VERIFIED REPORT Jeff Thurston M.D. at 02/19/2017 10:27 PM Rodolfo TD: 02/15/2017 00:00 JOB #: [id number] CC: Yue/lilian Please Delete MEDICAL IMAGING REPORT Page 1 of 1 COPY
--- NOTE | ~2017-02-14 | OR ---
Unit #: [id number] #: [id number] Patient: ADALBERTO ESTRADA [id number] [address] [place], [place] [address] [id number] O MR#: [id number] NAME: ADALBERTO ESTRADA ROOM: Date of Procedure: 02/14/2017 Admission Date: 02/14/2017 Surgeon: Sabino Valdez M.D. : 1965 Attending Physician: Sabino Valdez M.D. Primary Care Physician: Dorian Bryant M.D. OPERATIVE REPORT ATTENDING PHYSICIAN Dorian Bryant M.D. PREOPERATIVE DIAGNOSIS The patient has come for elective ERCP and biliary stent removal. PROCEDURE PERFORMED Endoscopic retrograde cholangiopancreatography. POSTOPERATIVE DIAGNOSES 1. Previously placed biliary stent had extruded spontaneously and plain x-ray of the abdomen did not show any biliary stent. 2. An ERCP was performed that showed normal cholangiography. RECOMMENDATIONS No further intervention is indicated. The patient is status post cholecystectomy. She should have no further biliary problems in the future. SEDATION USED MAC. DESCRIPTION OF PROCEDURE Following detailed explanation of the potential risks and complications of an ERCP, namely perforation, bleeding, complication related to sedation, and pancreatitis, the patient was brought to GI lab and laid in the left semiprone position. Sedation using MAC was given. Lateral-viewing duodenoscope was advanced through the oral cavity into the esophagus and advanced into the stomach. Pylorus was intubated in the usual fashion. The scope was advanced in deep descending duodenum. Upon shortening the scope, major papilla and ampullary area were visualized en face. However, previously placed biliary stent was not seen. Imaging of the entire abdomen also did not show any biliary stent indicating it had extruded and expelled spontaneously. We then used a sphincterotome and guidewire based cannulation technique through the previous sphincterotomy site. The common bile duct was cannulated. Contrast cholangiogram was obtained, which showed a nicely decompressed common bile duct about 7 or 8 mm in size. An occlusion cholangiogram showed completely normal CBD. The duct was swept with a 9 to 12 mm retrieval balloon multiple times and no stones or debris were delivered. The scope and the accessories were then withdrawn. The patient returned to the recovery area. She tolerated the procedure without any postprocedure complications. Unit #: [id number] #: [id number] Patient: ADALBERTO ESTRADA Dictated by... Opal Dc TD: 02/17/2017 07:50 JOB #: [id number] OPERATIVE REPORT Page 1 of 1 X Sabino Valdez MD PROCEDURE OPERATIVE NOTE
--- NOTE | ~2017-02-14 | CR84 ---
[facility] A Service of [facility] RADIOLOGY TEXT RESULTS PATIENT: ADALBERTO ESTRADA LOCATION: [facility] [facility] : 63 UNIT #: [id number] AGE: [address]: Sabino Valdez MD SEX: F ORDER DR: [id number] [facility] [address] [place], [place] [address] [id number] O MR#: [id number] Acc #: [id number] NAME: ADALBERTO ESTRADA : 1965 SEX: F STUDY DATE/TIME: 02/14/2017 14:34 UNIT: [facility] ROOM: STUDY DESCRIPTION: CR ERCP Biliary and Pancr SI Attending Physician: Sabino Valdez M.D. Ordering Physician: Sabino Valdez M.D. Primary Care Physician: Dorian Bryant M.D. MEDICAL IMAGING REPORT This report is preliminary unless electronic signature is present EXAM ERCP with fluoroscopy, 02/14/2017 HISTORY History states status post biliary stent. Stent removal. COMPARISON ERCP, 12/08/2016 FINDINGS 3 spot fluoroscopic images were obtained with fluoroscopy time 53 seconds. Contrast was injected into the common bile duct demonstrating mild fusiform dilation and mild downstream intrahepatic biliary ductal dilation. There is tapered narrowing of the distal CBD at or slightly below the expected location of the ampulla. Image 2 demonstrates balloon within the distal CBD. Brief endoscopist notes state no stones extracted. No suspicious filling defects are seen within the common bile duct. Cholecystectomy clips in place. Pancreatic duct not sought. Please refer to endoscopist report for additional findings and recommendations. Dictated by... Yadira Mcguire M.D. THIS IS AN ELECTRONICALLY VERIFIED REPORT Yadira Mcguire M.D. at 02/20/2017 8:30 AM Dasha TD: 02/17/2017 11:20 JOB #: [id number] [facility] A Service [facility] RADIOLOGY TEXT RESULTS PATIENT: ADALBERTO ESTRADA LOCATION: [employer] : 63 UNIT #: [id number] AGE: [address]: Sabino Valdez MD SEX: F ORDER DR: MEDICAL IMAGING REPORT Page 1 of 1 COPY
== END | disposition home or self-care (01) ==
LOC: COPS 13:14
DX: Z46.59 Encounter for fitting and adjustment of other gastrointestinal appliance and device (principal); J44.9 Chronic obstructive pulmonary disease, unspecified; F17.210 Nicotine dependence, cigarettes, uncomplicated; Z90.81 Acquired absence of spleen
CPT/HCPCS: 74000; 74330; J2250

== ENCOUNTER → 2017-05-16 | Outpatient (CLI) | payer OTHER ==
--- NOTE | ~2017-05-16 | CR181 ---
[facility] A Service of [facility] RADIOLOGY TEXT RESULTS PATIENT: ADALBERTO ESTRADA [facility]ATION: [facility] : 63 UNIT #: [id number] AGE: [address]: Fany James MD SEX: F ORDER DR: [id number] [address] [id number] O MR#: [id number] Acc #: [id number] NAME: ADALBERTO ESTRADA : 1965 SEX: F STUDY DATE/TIME: 05/16/2017 14:04 UNIT: [facility] ROOM: STUDY DESCRIPTION: CR Lumbar Spine 2 or 3 Views Attending Physician: Fany James M.D. Referring Physician: Fany James M.D. Ordering Physician: Fany James M.D. Primary Care Physician: Dorian Bryant M.D. MEDICAL IMAGING REPORT This report is preliminary unless electronic signature is present. EXAM Lumbar series 05/16/2017 INDICATIONS 52-year-old female with chronic back pain extending into both lower legs. Symptoms began 4 years ago. 40 years of tobacco abuse. Lower extremity numbness and tingling bilaterally. TECHNIQUE 3 views of the lumbar spine compared with CT 12/06/2016 finding. FINDINGS Vertebral body heights and alignment are preserved. There is degenerative disc disease at L4-L5 and L5-S1. Mild facet arthropathy at L4-L5 and L5-S1, left greater than right. Atherosclerotic calcifications of the aorta. Gallbladder surgically absent. IMPRESSION 1. Degenerative disc disease and facet arthropathy in the lower lumbar levels but no acute fracture or malalignment. 2. Atherosclerotic disease. Dictated by... Manuel Perea M.D. THIS IS AN ELECTRONICALLY VERIFIED REPORT Manuel Perea M.D. at 05/19/2017 9:09 AM Charly TD: 05/16/2017 22:58 [facility] A Service of [facility] RADIOLOGY TEXT RESULTS PATIENT: ADALBERTO ESTRADA [facility] : 63 UNIT #: [id number] AGE: [address]: Fany James MD SEX: F ORDER DR: JOB #: [id number] MEDICAL IMAGING REPORT Page 1 of 1
== END | disposition home or self-care (01) ==
LOC: SRAD 13:51
DX: M54.9 Dorsalgia, unspecified (principal); G89.29 Other chronic pain; M51.36 Other intervertebral disc degeneration, lumbar region; M46.96 Unspecified inflammatory spondylopathy, lumbar region; I70.0 Atherosclerosis of aorta
CPT/HCPCS: 72100